=== PATIENT | female | born 1970 | race Caucasian/White ===

== ENCOUNTER 2022-05-27 19:13 | Emergency (ER) | payer OTHER ==
[~2022-05-27] VITALS: Ht 162.6 cm; Wt 99.3 kg
[~2022-05-27 19:13] MED LIST: CIPRO500 MG PO; DIOVAN HCT 160-1 TAB; NASONEX17 GM NASAL; OSEL75CA PO; TUSSI PRES-B L120 M1 PO; ULTRACET PO; ZITHROMAX TRI-500 MG PO
[2022-05-27] MEDS ORDERED: PEPCID20 MG (19:39)
[2022-05-27] MEDS ORDERED: LIPITOR20 MG (19:39)
[2022-05-27] MEDS ORDERED: HYDROCHLOROTH12.5 MG (19:39)
[2022-05-27] MEDS ORDERED: DIOVAN160 M1 (19:39)
[2022-05-27] MEDS ORDERED: WELLBUTRIN XL300 MG (19:39)
[2022-05-27] MEDS ORDERED: CELEBREX200MG PO (22:05)
[2022-05-27] MEDS ORDERED: METAXALONE800 MG PO (22:05)
== END 2022-05-27 22:24 | disposition home or self-care (01) ==
LOC: ER 19:13
DX: S13.9XXA Sprain of joints and ligaments of unspecified parts of neck, initial encounter (principal); S00.93XA Contusion of unspecified part of head, initial encounter; W18.30XA Fall on same level, unspecified, initial encounter; Y93.9 Activity, unspecified; Y92.9 Unspecified place or not applicable; Y99.9 Unspecified external cause status